=== PATIENT | female | born 1930 | race Caucasian/White ===

== ENCOUNTER 2017-11-16 09:26 | Emergency (ER) | payer MEDICARE ==
--- OUTSIDE RECORDS SUMMARY | 2017-11-16 09:41 | XMS REPORT ---
:1930 External Reference #:[id number] Author Organization [facility] Address [address], [address] [place] [address] Phone [phone] Care Team Providers Name Role Phone Dheeraj Deng MD Primary Care Physician Unavailable Payers Type Date Identification Numbers Payment Provider Subscriber Medicare Primary Policy Number: [id number] Medicare Claudia Parsons PayID: [id number] [address] [place] [address] Medigap Part B Effective: Policy Number: [employer] Claudia Parsons 2015 [id number] Healthcare PayID: [id number] [address] [place] [address] Medigap Part B Policy Number: [id number] [facility] Claudia Parsons [address] [place] [address] Problems Date Description Provider Status Onset: 06/30/2016 Benign essential hypertension Neto Gunn MD Active Onset: 06/30/2016 Mixed hyperlipidemia Neto Gunn MD Active Onset: 11/09/2017 Bladder muscle dysfunction - Estela Ocampo M.D. Active overactive Family History Date Family Member(s) Problem(s) Comments Father due to DVT () Father Heart Attack Mother due to breast cancer () Mother Breast Cancer Social History Type Date Description Comments Marital Status Lives With Daughter Diet Patient is on a low sodium diet Occupation Retired Occupation was a [employer] ADL's/IADL's Dependent with all IADL's Cigarette Use Never Smoked Cigarettes ETOH Use Denies alcohol use Smoking Patient has never smoked Recreational Drug Use Denies Drug Use Daily Caffeine Comsumes on average 1 cup of decaff coffee per day Allergies, Adverse Reactions, Alerts Date Description Reaction Status Severity Comments 07/06/2016 Amoxicillin active 11/09/2017 Augmentin hives active Medications Medication Date Status Form Strength Qnty SIG Indications Ordering Provider Myrbetriq 11/09/ Active Tablets ER 50mg 30tabs 1 tab by N32.81 Damaris, 2018 24HR mouth ferny Palmer M.D. Digox 10/13/ Active Tablets 125mcg 90tabs 1 by mouth I48.91 Madelaine 2017 every day , Ronnie Cardenas M.D., [facility] Calcium 600 + D / Active Tablets 600-200mg- 1 by mouth Unknown 0000 Unit once daily Colace / Active Capsules 100mg 1 by mouth Unknown 0000 daily and can take twice a day as needed Eliquis / Active Tablets 2.5mg 1 tab by Unknown 0000 mouth twice daily Gabapentin / Active Capsules 100mg Unknown 0000 Miguel Angel / Active Packet Unknown 0000 Lasix / Active Tablets 20mg 1 by mouth Unknown 0000 every day Levothyroxine / Active Tablets 50mcg 1 by mouth Unknown Sodium 0000 every day Omeprazole / Active Capsules 40mg 1 by mouth Unknown 0000 DR every day Potassium / Active Capsules 10Meq 1 by mouth Unknown Chloride ER 0000 ER every day Sertraline HCL / Active Tablets 50mg 1 by mouth Unknown 0000 every day Tramadol HCL / Active Tablets 50mg Unknown 0000 Aspirin Adult / Active Tablets DR 81mg 1 tab by Unknown Low Strength 0000 mouth every daily Lactobacillus / Active Tablets 1 tab by Unknown 0000 mouth every day every morning Ventolin HFA / Active Aerosol 108(90Base take 2 Unknown 0000 ) mcg/Act puffs every 6 hours as needed for shortness of breath. Lorazepam / Active Tablets 0.5mg Mariana, 0000 Jody, DRAPERY AND UPHOLSTERY ESTIMATOR Metoprolol / Hx Tablets ER 25mg 1 by mouth I48.91 Unknown Succinate ER 0000 - 24HR every day 2017 Reglan / Hx Tablets 10mg 1 tab by Unknown 0000 - mouth as 11/09/ needed for 2018 migraine nausea Vital Signs Date Vital Result Comment 11/09/2017 BP Systolic 127 mmHg BP Diastolic 78 mmHg Body Temperature 97.4 F Heart Rate 91 /min Respiratory Rate 16 /min Weight 109.50 lb O2 % BldC Oximetry 84 % Pain Level 0 10/13/2017 BP Systolic Sitting Left Arm 130 mmHg BP Diastolic Sitting Left Arm 55 mmHg Heart Rate 87 /min Respiratory Rate 18 /min Weight 124.00 lb O2 % BldC Oximetry 93 % Results Test Date Test Result H/L Range Note Urine Dipstick 11/09/2017 Ua Color yellow Yellow Ua Clarity clear Clear Ua Leuko neg Negative Ua Nitrite neg Negative Ua Urobilinogen 3.5 High 0.2 - 1.0 E.U./dL Ua Protein neg Negative Ua PH 5.5 Low 6.5-7.5 Ua Blood neg Negative Ua Specific [place] 1.020 1.010-1.030 Ua Ketones neg Negative Ua Bilirubin 17 High Negative Ua Glucose neg Negative Procedures Date CPT Code Description Status 10/13/2017 40605 EKG-Tracing And Report Completed 06/12/2016 78231 Echocardiogram Complete Completed 06/12/2016 96473 EKG Interpretation And Report Only Completed Encounters Type Date Location Provider CPT E/M Dx Office Visit 11/09/2017 10:45a Urology Estela Ocampo M.D. 11662 N32.81 Office Visit 10/13/2017 11:30a Cardiology Office Gabrilela Tamayo, [address] I48.91 PA R06.02 I95.1 I50.32 Office Visit 06/12/2016 3:19p [place] [address] R07.9 I48.91 Plan of Care Future Appointment(s):12/07/2017 8:45 am - Estela Ocampo M.D. at [id number]/2017 11:30 am - Neto Gunn MD at Cardiology Opwnnd6811/09/2017 - Estela Ocampo M.D.N32.81 Overactive bladderNew Medication:Myrbetriq 50 mgNew Labs: Urine CultureComments:Discussed the modifications like limiting fluids at that time, encouraged the patient to wake up at night to void, and timed voiding. The family is also willing to try medications so I will do Myrbetriq and see if that will help. We'll see the patient back in 4 weeks for follow-up. We'll send a urine for culture.
[2017-11-16 09:46] VITALS: BP 109/75
--- NOTE | 2017-11-16 10:08 | UC ---
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 Negative: Fever, Pleuritic Chest Pain, Wheezing, Hemoptysis, Dizziness, Calf Pain, Calf Swelling, Edema - Allergies/Home Medications Allergies/Adverse Reactions: Allergies Allergy/AdvReac Type Severity Reaction Status Date / Time amoxicillin [From Augmentin] Allergy Intermediate Hives Verified 11/16/17 09:29 clavulanic acid Allergy Intermediate Hives Verified 11/16/17 09:29 [From Augmentin] Home Medications: Home Medications Apixaban* [Eliquis*] 5 mg PO 11/16/17 [History] Aspirin 81 mg PO 11/16/17 [History] Calcium Carb, Citrate/Vit D3 [Calcium+D3 Gradual Releas] 1 tab PO 11/16/17 [ History] Docusate CAP* [Colace Cap*] 100 mg PO BID 11/16/17 [History Confirmed 11/16/17] Gabapentin CAP(*) [Neurontin 100 mg CAP(*)] 100 mg PO TID 11/16/17 [History Confirmed 11/16/17] LORazepam [Ativan 0.5 MG TAB] 0.5 mg PO 11/16/17 [History] Levothyroxine TAB* [Synthroid TAB*] 11/16/17 [History] Levothyroxine TAB* [Synthroid TAB*] 50 mcg PO 11/16/17 [History] Mirabegron (NF) [Myrbetriq (NF)] 50 mg PO 11/16/17 [History] Potassium Bicarbonate/Cit AC [Potassium 25 Meq Tablet Eff] 11/16/17 [History] Sertraline* [Zoloft*] 50 mg PO BEDTIME 11/16/17 [History Confirmed 11/16/17] PMH/Surg Hx/FS Hx/Imm Hx Cardiovascular History: Hypertension, Atrial Fibrillation - Surgical History Surgical History: Yes Surgery Procedure, Year, and Place: left hip surgery - Family History Known Family History: Positive: Cardiac Disease - Social History Alcohol Use: None Substance Use Type: None Smoking Status (MU): Never Smoked Tobacco Review of Systems Constitutional: Negative Skin: Negative Eyes: Negative ENT: Nasal Discharge Respiratory: Shortness Of Breath, Cough Cardiovascular: Negative Neurological: Weakness Is Patient Immunocompromised?: No All Other Systems Reviewed And Are Negative: Yes Physical Exam Triage Information Reviewed: Yes Appearance: Ill-Appearing, Pain Distress, Thin Vital Signs: Initial Vital Signs Temp 98.2 F 11/16/17 09:39 Pulse 90 11/16/17 09:39 Resp 16 11/16/17 09:39 BP 109/75 11/16/17 09:39 Pulse Ox 98 11/16/17 09:39 Vital Signs Reviewed: Yes Eyes: Positive: Conjunctiva Clear ENT: Positive: Normal ENT inspection, Hearing grossly normal, Pharynx normal Neck: Positive: Supple, Nontender, No Lymphadenopathy Respiratory: Positive: Chest non-tender, Lungs clear, Normal breath sounds Cardiovascular: Positive: Other: - irrigularly irrigular Abdominal Exam: Normal Abdomen Description: Positive: Nontender, Soft. Negative: CVA Tenderness (R), CVA Tenderness (L) Bowel Sounds: Positive: Present UC Diagnostic Evaluation - Laboratory O2 Sat by Pulse Oximetry: 98 Respiratory Course/Dx - Differential Dx/Diagnosis Provider Diagnoses: cough. afib. fatigue Discharge - Sign-Out/Discharge Documenting (check all that apply): Patient Departure All imaging exams completed and their final reports reviewed: No Studies - Discharge Plan Condition: Stable Disposition: TRANS [facility] CARE FAC Patient Education Materials: Acute Bronchitis (ED), Fatigue (ED) Referrals: Sowmya RAMIREZ,Dheeraj Duncan [Primary Care Provider] - Additional Instructions: please go to [facility] ED for evaluation and treatment - Billing Disposition and Condition Condition: STABLE Disposition: Trans Higher l of Care Fac
== END 2017-11-16 10:08 | disposition short-term general hospital (02) ==
LOC: UCCORT 09:26
DX: R05 Cough (principal); I48.91 Unspecified atrial fibrillation; R53.83 Other fatigue; I10 Essential (primary) hypertension; Z79.01 Long term (current) use of anticoagulants; Z79.899 Other long term (current) drug therapy; Z88.3 Allergy status to other anti-infective agents
CPT/HCPCS: 99212; G0463